=== PATIENT | female | born 1975 | race Caucasian/White ===

== ENCOUNTER → 2020-06-10 | Outpatient (CLI) | payer BC | LOC: HEART 5 14:51 | DX: R00.2 Palpitations (principal) ==

== ENCOUNTER 2021-03-06 03:54 | Emergency (ER) | payer BC ==
[2021-03-06] MEDS ORDERED: NAPROXEN500 MG PO (04:39)
== END 2021-03-06 04:55 | disposition home or self-care (01) ==
LOC: ER1 03:54
DX: M25.531 Pain in right wrist (principal)
CPT/HCPCS: 73110; 99283